=== PATIENT | male | born 1960 | race Caucasian/White ===

== ENCOUNTER 2023-12-25 01:55 | Day surgery (SDC) | payer BC, SELFPAY ==
[2023-12-04 10:19] VITALS: BMI 34.5
[2023-12-25 07:15] VITALS: BP 127/78; PULSE 69; RESP 20; TEMP 36.1; O2SAT 97
[2023-12-25] MEDS: LACTATED RINGERS 1,000 ML 150 ML IV CONT (07:22)
--- NOTE | 2023-12-25 07:45 | WPDANESEPPF ---
Anes - Initial Pre Proc Eval Procedure: Operation Date: 12/25/23 08:30 Proposed Procedures p Screening Colonoscopy - Juan Jose Reagan DO Date/Time: 12/25/23 07:45 Surgeon: Juan Jose Reagan DO Pre Op Diagnosis: Screening for malignant neoplasm of colon Patient Data Age: 63 Gender: M Height: 1.7 m Weight: 102.2 kg Last Vital Signs Temp 36.1 C L 12/25/23 07:15 Pulse 69 12/25/23 07:15 Resp 20 12/25/23 07:15 BP 127/78 12/25/23 07:15 Pulse Ox 97 12/25/23 07:15 O2 Del Method Room Air 12/25/23 07:15 Allergies Allergy/AdvReac Type Severity Reaction Status Date / Time No Known Allergies Allergy Verified 12/25/23 07:13 Home Medications Medication Instructions Recorded Confirmed Type fexofenadine 180 mg tablet 180 mg PO DAILY 02/02/19 12/25/23 History (Maggie Allergy) cyanocobalamin (vitamin B-12) 1,000 mcg PO DAILY 08/30/21 12/25/23 History 1,000 mcg tablet Patient hx anesthesia problems: none Family hx anesthesia problems: none Results Review: All pre-operative results and documents have been reviewed as part of the pre-operative evaluation. [facility] Past Medical History Medical History Abnormal fasting glucose (08/30/22) Glucose 103 on 08/30/2022. Glucose 74 with hemoglobin A1c 5.5 in urine microalbumin ratio less than 2 With GFR 65 on 09/17/2023. Acute non-recurrent maxillary sinusitis Basal cell carcinoma left holiness excised BMI 34.0-34.9,adult BMI 35.0-35.9,adult BMI 37.0-37.9, adult Colon cancer screening patient reports normal colonoscopy age 53. COVID-19 (~2019) unvaccinated Encounter for prostate cancer screening PSA 2.43 on 05/25/2020. PSA 1.68 on 08/29/2021. PSA 1.78 on 08/30/2022. PE S a 1.92 on 09/17/2023. Encounter for wellness examination in adult Mixed hyperlipidemia (08/29/21) total cholesterol 239, triglycerides 145, HDL 47, LDL 163 on 08/29/2021. Total cholesterol 224, HDL 46, triglycerides 143, LDL 151 on 08/30/2022. Cholesterol 222, triglycerides 164, HDL 53, LDL 139 with ratio 4.2 on 09/17/2023. Obesity (BMI 30-39.9) Obesity (BMI 30.0-34.9) DEMETRI (obstructive sleep apnea) CPAP DEMETRI on CPAP (~2017) 9 cm of water pressure with fullface mask starting 2017. Renal calculus, bilateral Renal insufficiency (08/30/22) BUN 23, creatinine 1.52 with GFR 52 on 08/30/2022. BUN 20, creatinine 1.26 with GFR 65 on 09/17/2023. Seasonal allergic rhinitis Vitamin B12 deficiency B12 was low at 273 with goal greater than 400 on 08/29/2021. Level low at 214 with hemoglobin 14.7 on 08/30/2022. Level low at 398 with hemoglobin 15.2 on 09/17/2023. Family History Family History Father Alcoholism Diabetes mellitus Mother Alcoholism Grandparent Cancer Grandparent Heart disease Cerebrovascular accident Social History Social History Smoking status: Never smoker Alcohol intake: current Drinks per week: 4 Substance use: never Substance use type: does not use Current Housing: Decline to Answer Concerned About Future Housing: Decline to Answer Difficulty Paying Gas/Electric Bills: Decline to Answer Difficulty Paying for Meds: Decline to Answer Currently Unemployed: Decline to Answer Education: Decline to Answer Difficulty w/ Childcare or Family Care: Decline to Answer Living arrangements: with family Spiritual care concerns: No Anes - Eval Final PreProcedure Day of Procedure 12/25/23 07:45 Patient weight: obese Heart: regular rate and rhythm Lungs: clear to auscultation Airway: Mallampati scale class II Neurological: alert and oriented Last oral intake: >/= 8 hours ASA classification: III Emergent: no Anesthetic plan: proceed Anesthesia type and monitoring: general GIVS and standard monitoring Results Review: All pre-operative results a
--- NOTE | 2023-12-25 08:35 | PM.IMHP ---
H&P: HPI History of Present Illness Date/Time: 12/25/23 08:35 Chief Complaint: screening for colorectal cancer Narrative: this is a 63-year-old man who presents for colonoscopy. His last colonoscopy was 10 years ago and was normal. He denies any family history of colon cancer. He denies any hematochezia or melena. Review of Systems Review of Systems: All systems reviewed & are unremarkable except as noted in HPI and below Constitutional: Constitutional: Denies chills, Denies fever(s), Denies headache(s) and Denies weight loss Eyes: Eyes: Denies change in vision ENT: Denies dizziness, Denies headache(s), Denies neck mass and Denies throat swelling Cardiovascular: Cardiovascular: Denies chest pain, Denies lightheadedness and Denies dyspnea Respiratory: Respiratory: Denies cough, Denies dyspnea and Denies wheezing Gastrointestinal: Gastrointestinal: Denies abdominal pain, Denies change in bowel habits, Denies nausea and Denies vomiting Genitourinary: Genitourinary: Denies hematuria and Denies dysuria Musculoskeletal: Musculoskeletal: Reports as per HPI Integumentary/Breasts: Skin/Breast: Reports as per HPI Neurologic: Denies dizziness and Denies headache(s) Allergic/Immunologic: Allergic/Immunologic: Denies throat swelling and Denies wheezing [facility], [facility] Past Medical History Medical History Abnormal fasting glucose (08/30/22) Glucose 103 on 08/30/2022. Glucose 74 with hemoglobin A1c 5.5 in urine microalbumin ratio less than 2 With GFR 65 on 09/17/2023. Acute non-recurrent maxillary sinusitis Basal cell carcinoma left [place] excised BMI 34.0-34.9,adult BMI 35.0-35.9,adult BMI 37.0-37.9, adult Colon cancer screening patient reports normal colonoscopy age 53. COVID-19 (~2020) unvaccinated Encounter for prostate cancer screening PSA 2.43 on 05/25/2020. PSA 1.68 on 08/29/2021. PSA 1.78 on 08/30/2022. PE S a 1.92 on 09/17/2023. Encounter for wellness examination in adult Mixed hyperlipidemia (08/29/21) total cholesterol 239, triglycerides 145, HDL 47, LDL 163 on 08/29/2021. Total cholesterol 224, HDL 46, triglycerides 143, LDL 151 on 08/30/2022. Cholesterol 222, triglycerides 164, HDL 53, LDL 139 with ratio 4.2 on 09/17/2023. Obesity (BMI 30-39.9) Obesity (BMI 30.0-34.9) DEMETRI (obstructive sleep apnea) CPAP DEMETRI on CPAP (~2017) 9 cm of water pressure with fullface mask starting 2017. Renal calculus, bilateral Renal insufficiency (08/30/22) BUN 23, creatinine 1.52 with GFR 52 on 08/30/2022. BUN 20, creatinine 1.26 with GFR 65 on 09/17/2023. Seasonal allergic rhinitis Vitamin B12 deficiency B12 was low at 273 with goal greater than 400 on 08/29/2021. Level low at 214 with hemoglobin 14.7 on 08/30/2022. Level low at 398 with hemoglobin 15.2 on 09/17/2023. Family History Family History Father Alcoholism Diabetes mellitus Mother Alcoholism Grandparent Cancer Grandparent Heart disease Cerebrovascular accident Social History Social History Smoking status: Never smoker Alcohol intake: current Drinks per week: 4 Substance use: never Substance use type: does not use Current Housing: Decline to Answer Concerned About Future Housing: Decline to Answer Difficulty Paying Gas/Electric Bills: Decline to Answer Difficulty Paying for Meds: Decline to Answer Currently Unemployed: Decline to Answer Education: Decline to Answer Difficulty w/ Childcare or Family Care: Decline to Answer Living arrangements: with family Spiritual care concerns: No Meds Home Medications and Allergies Home Medications Medication Instructions Recorded Confirmed Type fexofenadine 180 mg tablet 180 mg PO DAILY 02/02/19 12/25/23 History (Maggie Allergy) cyanocobalamin (vitamin B-12) 1,000 mcg PO DAILY 08/30/21 12/25/23 Histo
[2023-12-25 08:53] VITALS: BP 97/69; PULSE 57; RESP 18; O2SAT 95
[2023-12-25 09:03] VITALS: BP 105/76; PULSE 54; RESP 15; O2SAT 96
[2023-12-25 09:13] VITALS: BP 105/76; PULSE 58; RESP 20; O2SAT 100
== END 2023-12-25 09:18 | disposition home or self-care (01) ==
PROVIDERS: PCP Family Medicine; Visit Provider Surgery
PROC: 0DJD8ZZ Inspection of Lower Intestinal Tract, Via Natural or Artificial Opening Endoscopic (ICD-10-PCS; CPT 45378; principal; 2023-12-25 08:30)
DX: Z12.11 Encounter for screening for malignant neoplasm of colon (principal); E78.2 Mixed hyperlipidemia; G47.33 Obstructive sleep apnea (adult) (pediatric); N28.9 Disorder of kidney and ureter, unspecified; E66.9 Obesity, unspecified; Z68.35 Body mass index [BMI] 35.0-35.9, adult; Z99.89 Dependence on other enabling machines and devices; E53.8 Deficiency of other specified B group vitamins; Z85.828 Personal history of other malignant neoplasm of skin; Z80.9 Family history of malignant neoplasm, unspecified; Z82.49 Family history of ischemic heart disease and other diseases of the circulatory system
CPT/HCPCS: 45378; J2704; J7120